=== PATIENT | male | born 1985 | race Caucasian/White ===

== ENCOUNTER 2023-07-01 17:59 | Emergency (ER) | payer OTHER, SELFPAY ==
[2023-07-01 18:09] VITALS: BP 155/89; PULSE 92; RESP 20; TEMP 36.7; O2SAT 98; BMI 31.7
--- NOTE | 2023-07-01 18:09 | ED_ITS ---
HPI - Skin/Abscess/Foreign Bdy General Chief complaint: Skin/Abscess/Foreign Body Stated complaint: poison elham Time Seen by Provider: 07/01/23 18:09 Source: patient, RN notes reviewed and old records reviewed Mode of arrival: ambulatory History of Present Illness HPI narrative: 37-year-old male with no significant past medical history presenting to the ED complaining of poison elham to bilateral upper and lower extremities x 1 week s/p working in the yard. Has tried multiple OTC medications without relief. Denies fever/chills, other new exposures, SOB, cough, wheezing MD complaint: rash Related Data Previous Rx's Medication Instructions Recorded cetirizine 10 mg capsule (Zyrtec) 10 mg PO DAILY PRN allergy 07/01/23 symptoms #14 caps diphenhydramine HCl 25 mg capsule 25 mg PO TID PRN allergic reaction 07/01/23 (Benadryl) #14 caps hydrocortisone 1 % topical 1 appl topical BID PRN rash #453.6 07/01/23 ointment (Anti-Itch grams (hydrocortisone)) prednisone 20 mg tablet 40 mg PO DAILY 5 days #10 tabs 07/01/23 Allergies Allergy/AdvReac Type Severity Reaction Status Date / Time No Known Allergies Allergy Verified 07/01/23 18:12 Review of Systems Review of Systems: Constitutional: No Fever, No Chills ENT/Mouth: No Ear Pain, No Nasal Congestion, No Sinus Pain, No Hoarseness, No sore throat, No Rhinorrhea, No Swallowing Difficulty Cardiovascular: No Chest Pain, No SOB Respiratory: No Cough, No Sputum, No Wheezing Gastrointestinal: No Nausea, No Vomiting, No Abdominal pain Musculoskeletal: No joint pain, No Myalgias, No Joint Swelling Skin: No Skin Lesions, + rash Neuro: No Weakness Yes all other systems are reviewed and are negative Constitutional: Constitutional: Reports as per [facility] Past Medical History Attestation statement: The following information was validated with the patient. Source: old records reviewed Physical Exam Vital Signs: Vital Signs: Last Vital Signs Temp 98.1 F 07/01/23 18:09 Pulse 92 07/01/23 18:09 Resp 20 07/01/23 18:09 BP 155/89 H 07/01/23 18:09 Pulse Ox 98 07/01/23 18:09 O2 Del Method Room Air 07/01/23 18:09 BMI result Body Mass Index 31.7 Const: General: cooperative, healthy appearing and no acute distress Orientation/consciousness: patient oriented x3 Limitations: no limitations HEENT: Head: Yes normal to inspection and Yes atraumatic Ears: hearing grossly normal bilaterally General nose exam: Normal external nose present Face and sinus: Yes normal facial exam Eyes: General: appearance normal, both eyes and all related structures EOM: EOMs intact bilaterally Neck: Neck: Yes normal visual inspection and Yes no meningeal signs Resp: Effort & Inspection: normal respiratory effort, no respiratory distress and no stridor Cardio: Rate: regular rate Heart sounds: S1 normal heart sound present and S2 normal heart sound present Skin: Other: +multiple vesicular lesions w/erythema noted to b/l LE & hand/wrists, some in linear pattern. No sloughing, no mucous membrane or palm/sole involvement Wounds: no wounds Neuro: General: patient oriented x3, tone normal and no meningeal signs Cranial nerves: Yes CN's II-XII intact bilaterally Gait exam (Neuro): Normal gait present Extrem: General: Yes normal to inspection Medical Decision Making Medical Decision Making MDM Narrative: 37-year-old male with no significant past medical history presenting to the ED complaining of poison elham to bilateral upper and lower extremities x 1 week s/p working in the yard. On exam vital signs stable, NAD, nontoxic appearing, physical exam as noted above consistent with poison elham to upper and lower extremities. No evidence of cellulitis. No sloughing. No palm or sole involvement. No mucous membrane involvement. Low suspicion for SJS/TENS Plan: PO & topical prednisone, Zyrtec/Benadryl, PCP follow-up Results discussed with patient including worrisome signs and symptoms and strict return precautions, and when to return to the emergency department. They verbalized understanding and feel safe for discharge at this time. Differential Diagnosis Differential Diagnoses: The differential diagnosis associated with the presentation includes As above External Record Review External record reviewed: Inpatient record, Office record, Outpatient record, Prior outpatient labs, Prior outpatient radiology, Primary care record and Outside ED record Tests considered The following testing was considered but not selected: As above Prescription Management I considered prescription management with: Other Discharge Plan Discharge Clinical Impression: Poison elham Patient Disposition: Home, Self-Care Instructions: Poison Elham (ED) Additional Instructions: avoid itching use topical cream on to rash only, avoid application to Face Prednisone as an oral steroid Take Benadryl to help with itching, this will make you drowsy, take at night, do not drive or operate machinery while taking In addition you may take Zyrtec this will not make you drowsy Follow-up with her doctor If symptoms persist or worsen return to the ED Prescriptions: New hydrocortisone [Anti-Itch (HC)] 1 % ointment 1 appl topical BID PRN (Reason: rash) Qty: 453.6 0RF Rx Instructions: Avoid application to face and genital region prednisone 20 mg tablet 40 mg PO DAILY 5 Days Qty: 10 0RF diphenhydramine HCl [Benadryl] 25 mg capsule 25 mg PO TID PRN (Reason: allergic reaction) Qty: 14 0RF Zyrtec 10 mg capsule 10 mg PO DAILY PRN (Reason: allergy symptoms) Qty: 14 0RF Referrals: Physician,None [Primary Care Provider] - 3 days
== END 2023-07-01 18:20 | disposition home or self-care (01) ==
PROVIDERS: Emergency Provider Student in an Organized Health Care Education/Training Program
DX: L23.7 Allergic contact dermatitis due to plants, except food (principal)
CPT/HCPCS: 99282; 99283